=== PATIENT | female | born 1970 | race Caucasian/White ===

== ENCOUNTER 2018-07-19 18:23 | Emergency (ER) | payer BC ==
[2018-07-19 18:44] VITALS: RESP 18; TEMP 97.4
[2018-07-19 18:47] LABS: BASOPHILS % (AUTO) 1 % (0-3); EOSINOPHILS % (AUTO) 4 % (0-9); HEMATOCRIT 37 % (35-47); HEMOGLOBIN 12.4 gm/dl (12.0-15.5); MEAN CORPUSCULAR HGB CONC 33.8 gm/dl (32.0-36.0); MEAN CORPUSCULAR VOLUME 92 fL (81-99); MONOCYTES % (AUTO) 9.2 % (0-12); NEUTROPHILS % (AUTO) 49.4 % (37-80)
[2018-07-19] MEDS ORDERED: KETOROLAC TROMETHAMINE 30 MG/ML SOL IM ONE (18:59)
[2018-07-19] MEDS ORDERED: ACETAMINOPHEN 500 MG 500 MG TAB PO ONE (19:00)
[2018-07-19 19:04] LABS: BLOOD UREA NITROGEN 22 mg/dl (7-18); CALCIUM 8.8 mg/dl (8.5-10.1); CARBON DIOXIDE 27.9 mEq/L (21-32); CHLORIDE 104 mMol/L (98-107); CREATININE 0.93 mg/dl (0.60-1.00); GLUCOSE 95 mg/dl (74-106); POTASSIUM 3.5 mMol/L (3.5-5.1); SODIUM 142 mMol/L (136-145); TROP I < 0.017 ng/ml (0.000-0.056)
[2018-07-19] MEDS ORDERED: ACETAMINOPHEN 500 MG 500 MG TAB ONE (19:07)
[2018-07-19 19:19] VITALS: BP 121/70; PULSE 53; O2SAT 97
== END 2018-07-19 19:20 | disposition home or self-care (01) ==
LOC: ED 18:23
DX: T14.8XXA Other injury of unspecified body region, initial encounter (principal)
CPT/HCPCS: 36415; 71045; 80048; 84484; 85025; 93005; 99282; 99284